=== PATIENT | male | born 1945 | race Caucasian/White ===

== ENCOUNTER → 2017-09-21 | Outpatient (CLI) | payer MEDICARE, OTHER ==
[2015-02-24 08:24] VITALS: BMI 24.6
[~2017-09-21] MED LIST: ACET500T68 PO; AMOX1TAB9 PO; ASPI-1471 PO; ATOR40TA69 PO; CHOL200074 PO; CHOL500025 PO; ESOM20CA31 PO; LORA-629 PO; MONT10TA PO; OMEG-11 PO; OMEG500C5 PO; OMEP40CA48 PO; PRED-420 PO; PRED2.5T6 PO; RANI-324 PO; ROSU20TA23 PO; SODI126M; SUCR1TAB51 PO; TRIA10.8
== END ==
LOC: RESP 19:48
PROVIDERS: ATTEND Emergency Medicine
DX: G47.33 Obstructive sleep apnea (adult) (pediatric) (principal); G47.37 Central sleep apnea in conditions classified elsewhere; G47.61 Periodic limb movement disorder

== ENCOUNTER → 2017-10-02 | Outpatient (CLI) | payer MEDICARE, OTHER ==
[2015-02-24 08:24] VITALS: BMI 24.6
--- NOTE | 2017-10-02 11:07 | RADIOLOGY IMAGING REPORT ---
FACILITY: [facility] PATIENT NAME: Viktor Vázquez : 1945 MR: [id number] V: [id number] EXAM DATE: ORDERING PHYSICIAN: MISHEL LOWERY TECHNOLOGIST: Location: [facility] - [place], [place] Patient: Viktor Vázquez : 1945 Visit/Account:[id number] Date of Sevice: 10/02/2017 Chest with lateral, 2 views. HISTORY: Sleep apnea. COMPARISON: None. The aortic knob is minimally calcified. The heart and mediastinum are otherwise unremarkable. Pulmon marcelino vessels are unremarkable. The lungs are clear. The pleural surfaces are unremarkable. No pneumot horax. Mild degenerative changes are present in the spine. The cardiac apical fat pad is slightly pro minent. IMPRESSION: No evidence of acute cardiopulmonary disease. Report Dictated By: Lucas Diana MD at 10/02/2017 11:00 AM Report E-Signed By: Lucas Diana MD at 10/02/2017 11:01 AM WSN:[id number]
== END ==
LOC: LAB 10:00
PROVIDERS: ATTEND Emergency Medicine
DX: G47.31 Primary central sleep apnea (principal); M79.1 Myalgia
CPT/HCPCS: 36415; 71046; 82550; 82607; 82746

== ENCOUNTER → 2017-10-04 | Outpatient (CLI) | payer MEDICARE, OTHER ==
[2015-02-24 08:24] VITALS: BMI 24.6
== END ==
LOC: RESP 19:52
PROVIDERS: ATTEND Emergency Medicine
DX: G47.33 Obstructive sleep apnea (adult) (pediatric) (principal); G47.37 Central sleep apnea in conditions classified elsewhere; G47.61 Periodic limb movement disorder; G47.36 Sleep related hypoventilation in conditions classified elsewhere

== ENCOUNTER → 2017-10-08 | Outpatient (CLI) | payer MEDICARE, OTHER ==
[2015-02-24 08:24] VITALS: BMI 24.6
== END ==
LOC: RESP 01:59
PROVIDERS: ATTEND Emergency Medicine
DX: J98.4 Other disorders of lung (principal)
CPT/HCPCS: 94060; 94726; 94729

== ENCOUNTER → 2017-10-14 | Outpatient (CLI) | payer MEDICARE, OTHER ==
[2015-02-24 08:24] VITALS: BMI 24.6
== END ==
LOC: LAB 08:20
PROVIDERS: ATTEND Emergency Medicine
DX: E78.5 Hyperlipidemia, unspecified (principal)
CPT/HCPCS: 36415; 82465; 83718; 84478

== ENCOUNTER → 2017-12-25 | Outpatient (CLI) | payer MEDICARE, OTHER ==
[2015-02-24 08:24] VITALS: BMI 24.6
[~2017-12-25] MED LIST changes: -RANI-324 PO; +RANI-366 PO
== END ==
LOC: RESP 19:54
PROVIDERS: ATTEND Emergency Medicine
DX: G47.33 Obstructive sleep apnea (adult) (pediatric) (principal); G47.37 Central sleep apnea in conditions classified elsewhere; G47.61 Periodic limb movement disorder; G47.36 Sleep related hypoventilation in conditions classified elsewhere

== ENCOUNTER → 2018-10-07 | Outpatient (CLI) | payer MEDICARE, OTHER ==
[2015-02-24 08:24] VITALS: BMI 24.6
[~2018-10-07] MED LIST changes: +EZET10TA41 PO; +PRAV20TA65 PO
[2018-10-07 11:02] LABS: PLATELET COUNT, AUTOMATED 274 K/uL (150-450)
== END ==
LOC: LAB 10:33
PROVIDERS: ATTEND Emergency Medicine
DX: B34.9 Viral infection, unspecified (principal)
CPT/HCPCS: 36415; 85007; 85027; 86140